=== PATIENT | male | born 1995 | race Caucasian/White ===

== ENCOUNTER 2017-07-08 17:23 | Emergency (ER) | payer OTHER ==
--- NOTE | 2017-07-08 18:06 | EDPHY ---
H & P Time Seen by Provider: 07/08/17 17:38 HPI/ROS: CHIEF COMPLAINT: Head injury playing basketball HISTORY OF PRESENT ILLNESS: 21-year-old male generally healthy, no anticoagulant use, arrives via private vehicle after he was elbowed in the left face and head playing basketball approximately 1 hr prior to arrival. [place] temporarily dazed. Positive mild headache. No loss of consciousness. No nausea or vomiting. No chest pain or trauma. No visual disturbance currently. No otorrhea. PRIMARY CARE PROVIDER: REVIEW OF SYSTEMS: A ten point review of systems was performed and is negative with the exception of the items mentioned in the HPI PAST MEDICAL/SURGICAL HISTORY: no anticoagulant use, no relevant medical/ surgical history SOCIAL HISTORY: denies alcohol use at time of incident PHYSICAL EXAM 1) GENERAL: Well-developed, well-nourished, alert and oriented. Appears to be in no acute distress. Answering questions appropriately. GCS 15 2) HEAD: Normocephalic, atraumatic 3) HEENT: Pupils equal, round, reactive to light bilaterally. Negative Horners. Nasopharynx, oropharynx, clear. No deformity or angulation of nose. No septal hematoma. No rhinorrhea. No oral trauma. Ears bilaterally with normal tympanic membranes. No hemotympanum. No fluid or blood in the external auditory canal. No raccoon eyes. No Cooper sign. Teeth are normally aligned with no gross malocclusion, TMJ bilaterally nontender, facial bones nontender including the zygomatic arch, maxilla mandible. 4) NECK: No cervical collar is on. Posterior cervical spine is nontender, no stepoff, no effusion. Full range of motion which does not elicit any midline cervical spine pain, no posterior midline tenderness, no step-off. 5) LUNGS: Clear to auscultation bilaterally, no wheezes, no rhonchi, no retractions. No obvious signs of trauma. No chest wall pain. No flaring, no grunting. Moving symmetrically. No crepitus. 6) HEART: [Regular rate and rhythm, 7) ABDOMEN: No guarding, no rebound, no focal tenderness, no peritoneal signs, no signs of trauma, no ecchymosis 8) MUSCULOSKELETAL: Moving all extremities, no focal areas of tenderness, no obvious trauma. 9) BACK: Patient logrolled while holding inline traction.No midline vertebral tenderness, no fluctuance, no step-off, no obvious trauma, no visual or palpable abnormality. 10) SKIN: No laceration. No abrasion 11) NEURO: Awake, alert, and oriented to person, place and time. Answers questions appropriately. There were no obvious focal neurologic abnormalities. No cerebellar dysfunction. Normal steady gait. Upper and lower extremities bilaterally with strength 5 / 5, reflexes 2+. DIFFERENTIAL DIAGNOSIS: Not necessarily in any particular order, my differential diagnosis includes, but is not limited to, concussion, skull fracture, intraparenchymal contusion, subarachnoid, subdural and epidural hematoma. The patient understands that this diagnosis is provisional and can never be 100% accurate. Smoking Status: Never smoked Constitutional: Initial Vital Signs Temperature (C) 36.7 C 07/08/17 17:31 Heart Rate 72 07/08/17 17:31 Respiratory Rate 17 07/08/17 17:31 Blood Pressure 136/86 H 07/08/17 17:31 O2 Sat (%) 98 07/08/17 17:31 O2 Delivery Mode Room Air Allergies/Adverse Reactions: No Known Allergies Allergy (Unverified 07/08/17 17:30) Home Medications: Medication Instructions Recorded Lexapro 07/08/17 MDM/Departure - MDM ED Course/Re-evaluation: The patient has negative [place] head CT rules. I do not think that the benefits of CT imaging outweigh the risks. I have discussed this with the patient he feels comfortable with this plan. Usual and customary head injury precautions instructions provided. Care of patient under supervision of secondary supervising physician Dr Asad Cheung. 2nd impact syndrome precautions provided. - Depart Disposition: Home, Routine, Self-Care Clinical Impression: Head injury due to trauma Qualifiers: Encounter type: initial encounter Qualified Code(s): S09.90XA - Unspecified injury of head, initial encounter Condition: Good Instructions: Concussion (ED) Additional Instructions: ALTHOUGH THERE IS NO EVIDENCE OF SERIOUS HEAD INJURY AT THIS TIME, DELAYED SIGNS CAN APPEAR 24 TO 48 HOURS AFTER INJURY. PLEASE RETURN TO THE EMERGENCY DEPARTMENT (ED) IMMEDIATELY IF YOU HAVE INCREASED HEADACHE, PERSISTENT HEADACHE , VOMITING, WEAKNESS, CONFUSION OR VISUAL PROBLEMS. WE RECOMMEND THAT YOU DO NOT RESUME CONTACT SPORTS OR ACTIVITIES THAT TAKE COORDINATION OR BALANCE SUCH SKIING OR RIDING A BICYCLE UNTIL CLEARED TO DO SO BY YOUR DOCTOR OR BY A NEUROLOGIST. Referrals: Keily South MD [Medical Doctor] - 2-3 days, call for appt.
[2017-07-08 18:36] VITALS: BP 127/81; PULSE 71; RESP 15; TEMP 97.5; O2SAT 96
== END 2017-07-08 18:36 | disposition home or self-care (01) ==
DX: S09.90XA Unspecified injury of head, initial encounter (principal); W50.0XXA Accidental hit or strike by another person, initial encounter; Y99.8 Other external cause status; Y93.67 Activity, basketball

== ENCOUNTER 2018-08-02 11:56 | Emergency (ER) | payer OTHER ==
[2018-08-02 12:00] VITALS: BP 127/91
--- NOTE | 2018-08-02 12:08 | EDPHY ---
H & P Stated Complaint: Injury to left big toe. Time Seen by Provider: 08/02/18 12:08 HPI/ROS: HPI: This is a 22-year-old male who presents with Chief Complaint: Left toe injury Location: Left toe Quality: Injury Duration: Today Signs and Symptoms: No bleeding, no radiation, no numbness, no weakness, no tingling, no incontinence, no decreased range of motion, no swelling,+ pain, no fever Timing: Acute on chronic Severity: Mild Context: Patient reports that he was kick boxing and uses left foot to kick the bag approximately 3 months ago and believes he may have sustained a fracture. He reports that it was sore for several weeks but then improved. He reports today he was barefoot and kicked the bag again and noted pain in the same spot. He reports that there is swelling and tenderness to palpation at the distal joint. Denies any radiation, weakness, decreased range of motion. Modifying Factors: None Comment: ROS: A comprehensive 10 system review of systems is otherwise negative aside from elements mentioned in the history of present illness. MEDICAL/SURGICAL/SOCIAL HISTORY: Medical history: Migraines, depression. Surgical history: Denies Social history: Nonsmoker. Student. CONSTITUTIONAL: Well-developed, well-nourished, young adult white male, awake and alert, no obvious distress HEENT: Atraumatic and normocephalic. NECK: supple, no midline tenderness Cardiovascular: Normal S1/S2, regular rate, regular rhythm, without murmur rub or gallop. PULMONARY/CHEST: Symmetrical and nontender. Clear to auscultation bilaterally. Good air movement. No accessory muscle usage. ABDOMEN: Soft, nondistended, nontender. EXTREMITIES: 2/2 pulses, strength 5/5, left great toe shows tenderness at the DI P joint; but no significant swelling or erythema. DIP/PIP/MCP flexion/ extension intact with good light touch sensation. no deformities, no clubbing, no cyanosis or edema. NEUROLOGICAL: no focal neuro deficits. GCS 15. Light touch sensation intact. SKIN: Warm and dry, no erythema. no rash. Good capillary refill. Source: Patient Exam Limitations: No limitations - Personal History Current Tetanus Diphtheria and Acellular Pertussis (TDAP): Yes - Medical/Surgical History Hx Asthma: No Hx Chronic Respiratory Disease: No Hx Diabetes: No Hx Cardiac Disease: No Hx Renal Disease: No Hx Cirrhosis: No Hx Alcoholism: No Hx HIV/AIDS: No Hx Splenectomy or Spleen Trauma: No Other PMH: migraines. - Social History Smoking Status: Never smoked Constitutional: Initial Vital Signs Temperature (C) 36.6 C 08/02/18 11:58 Heart Rate 60 08/02/18 11:58 Respiratory Rate 16 08/02/18 11:58 Blood Pressure 127/91 H 08/02/18 11:58 O2 Sat (%) 97 08/02/18 11:58 O2 Delivery Mode Room Air Allergies/Adverse Reactions: No Known Allergies Allergy (Unverified 07/08/17 17:30) Home Medications: Medication Instructions Recorded Lexapro 07/08/17 Medical Decision Making - Diagnostics Imaging Results: Imaging Impressions Toe X-Ray 08/02/18 12:00 Impression: Small corner fracture adjacent to the first IP joint. ED Course/Re-evaluation: Vital signs reviewed and stable upon arrival. Right toe x-ray my read shows small chip avulsion fracture at distal interphalangeal joint. Patient advised of supportive care and podiatry follow-up No signs of neurovascular compromise/tenting of skin/compartment syndrome/ extremities and joints examined above and below area of concern and are neurovascularly intact. This patient was seen under the supervision of my secondary supervising physician. I evaluated care for this patient independently. Discussed this patient with Dr. Mensah. Differential Diagnosis: Differential diagnosis includes but is not limited to contusion, sprain, fracture. Departure - Departure Disposition: Home, Routine, Self-Care Clinical Impression: Closed fracture of left toe Qualifiers: Encounter type: initial encounter Toe: great toe Phalanx: proximal Fracture alignment: nondisplaced Qualified Code(s): S92.415A - Nondisplaced fracture of proximal phalanx of left great toe, initial encounter for closed fracture Condition: Good Instructions: Toe Fracture (ED) Additional Instructions: Alexis-tape your 1st and 2nd toe together until pain free. Take Tylenol 650 mg every 4 hours and/or Ibuprofen 600 mg every 8 hours with food as needed for pain. Apply ice for 30 minutes at a time; 2-3 times per day for the next 1-2 days. Avoid any kicking habits or strenuous exercise until pain free. Follow up with Podiatry in 3-4 weeks if symptoms persist at which time they will evaluate and recommend with you if conservative management versus further imaging is indicated. Referrals: Rigo Victor DPM [Doctor of Podiatric Medicine] - Follow Up Only If Needed
== END 2018-08-02 12:32 | disposition home or self-care (01) ==
DX: S92.415A Nondisplaced fracture of proximal phalanx of left great toe, initial encounter for closed fracture (principal); W22.8XXA Striking against or struck by other objects, initial encounter; Y92.9 Unspecified place or not applicable; Y99.9 Unspecified external cause status; Y93.71 Activity, boxing

== ENCOUNTER 2018-08-21 16:08 | Emergency (ER) | payer OTHER ==
--- NOTE | 2018-08-21 17:44 | EDPHY ---
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 Patient reports that he was wearing gloves and sparring but no helmet. He took several hits to his head last Saturday, and then again on Saturday of this week. Patient reports that after the injury and last Saturday the next day he felt "fatigued and foggy. " Symptoms resolved on Saturday so he returned to boxing on last . He said he felt fine last and Saturday after boxing but today while in class he started to develop some confusion and had difficulty concentrating. Denies LOC/neck pain/dizziness/nausea/vomiting/amnesia. He reports that he a concussion last year. Modifying Factors: None Comment: ROS: A comprehensive 10 system review of systems is otherwise negative aside from elements mentioned in the history of present illness. MEDICAL/SURGICAL/SOCIAL HISTORY: Medical history: Migraine headaches. Does not take any regular medications. Surgical history: Denies Social history: Student at [employer]. Never smoked. CONSTITUTIONAL: Well-developed, well-nourished, articulate young adult male, awake and alert, no obvious distress HEENT: Atraumatic and normocephalic. NECK: supple, no midline tenderness, flexion 45 degrees, extension 45 degrees, right and left lateral flexion 45 degrees. No meningismus. Cardiovascular: Normal S1/S2, regular rate, regular rhythm, without murmur rub or gallop. PULMONARY/CHEST: Symmetrical and nontender. no crepitus. Clear to auscultation bilaterally. Good air movement. No accessory muscle usage. ABDOMEN: Soft, nondistended, nontender, no ecchymosis. EXTREMITIES: 2/2 pulses, strength 5/5, DIP/PIP/MCP flexion/extension intact with good light touch sensation. no deformities, no clubbing, no cyanosis or edema. NEUROLOGICAL: no focal neuro deficits. GCS 15. Light touch sensation intact. Cranial nerves 2-12 grossly intact. Normal Romberg testing. Ambulatory without any deficits. SKIN: Warm and dry, no erythema. no rash. Good capillary refill. Source: Patient Exam Limitations: No limitations - Personal History Current Tetanus/Diphtheria Vaccine: Yes Current Tetanus Diphtheria and Acellular Pertussis (TDAP): Yes - Medical/Surgical History Hx Asthma: No Hx Chronic Respiratory Disease: No Hx Diabetes: No Hx Cardiac Disease: No Hx Renal Disease: No Hx Cirrhosis: No Hx Alcoholism: No Hx HIV/AIDS: No Hx Splenectomy or Spleen Trauma: No Other PMH: migraines. - Social History Smoking Status: Never smoked Constitutional: Initial Vital Signs Temperature (C) 37.1 C 08/21/18 17:07 Heart Rate 75 08/21/18 17:07 Respiratory Rate 16 08/21/18 17:07 Blood Pressure 131/87 H 08/21/18 17:07 O2 Sat (%) 98 08/21/18 17:07 O2 Delivery Mode Room Air Allergies/Adverse Reactions: No Known Allergies Allergy (Unverified 08/21/18 17:07) Home Medications: Medication Instructions Recorded Ondansetron Odt [Zofran Odt 4 mg 4 mg PO Q4 PRN #12 tab 08/21/18 (*)] Medical Decision Making ED Course/Re-evaluation: Vital signs reviewed and stable upon arrival. No LOC. No neurological deficits. Based on nexus protocol, head CT imaging not indicated Given school excuse, prescription for Zofran, referral to concussion Clinic Written and verbal concussion precautions discussed thoroughly This patient was seen under the supervision of my secondary supervising physician. I evaluated care for this patient independently. Discussed this patient with Dr. Ortega who did not see the patient. Differential Diagnosis: Head injury including but not limited to concussion, skull fracture, intraparenchymal contusion, subarachnoid, subdural and epidural hematoma. Departure - Departure Disposition: Home, Routine, Self-Care Clinical Impression: Mild concussion Qualifiers: Encounter type: initial encounter Loss of consciousness presence/duration: without LOC Qualified Code(s): S06.0X0A - Concussion without loss of consciousness, initial encounter Condition: Good Instructions: Concussion (ED) Additional Instructions: You sustained a closed head injury and mild concussion and it is recommended that you observe concussion precautions. Please do not participate in any contact sports or moderate and strenuous activity until all symptoms have resolved or cleared by PCP/Concussion Clinic. Please refrain from alcohol and drug use until all symptoms have resolved. Take Tylenol 650 mg every 4 hours and/or Ibuprofen 600 mg every 8 hours with food as needed for pain/headache. Take Zofran every 4-6 hours as needed for nausea, vomiting. Consume a minimum of 8-10 glasses of water or electrolyte fluid replacement drinks that include Gatorade, Powerade, Pedialyte. Please follow-up with primary care provider/[facility] in 5-7 days. If symptoms last longer than 1 week, please follow-up with Dr. South in the concussion Clinic. Return to the ER immediately if you have progressive headaches, neurologic deficits, gait abnormality, visual disturbance, slurred speech, or any other symptom that concerns you. Referrals: [facility],. [Clinic] - As per Instructions Keily South MD [Medical Doctor] - As per Instructions Stand Alone Forms: School Excuse Prescriptions: Ondansetron Odt [Zofran Odt 4 mg (*)] 4 mg PO Q4 PRN #12 tab PRN Reason: Nausea/Vomiting, Use 1st
[2018-08-21 18:00] VITALS: BP 144/87
== END 2018-08-21 18:00 | disposition home or self-care (01) ==
DX: S06.0X0A Concussion without loss of consciousness, initial encounter (principal); W50.0XXA Accidental hit or strike by another person, initial encounter; Y93.71 Activity, boxing; Y92.838 Other recreation area as the place of occurrence of the external cause